=== PATIENT | male | born 1955 | race Caucasian/White ===

== ENCOUNTER → 2020-04-15 06:12 | Outpatient (CLI) | payer MEDICARE, OTHER, SELFPAY ==
--- NOTE | 2020-04-15 | DI.MRI.S_ITS ---
PROCEDURE: MR LUMBAR SPINE WO CON INDICATIONS: Low back pain TECHNIQUE: Noncontrast sagittal T1 spin echo and T2 fast echo, sagittal STIR, axial T1 and T2 fast spin echo through the lumbar spine. In cases with scoliosis, additional coronal T2 fast spin echo may be performed. COMPARISON: None. FINDINGS: Image quality: Excellent. Alignment and Curvature: There is normal bony alignment. Bone Marrow: Marrow is of normal overall signal. No acute vertebral body compression fractures. Spinal Cord: Conus medullaris terminates at the T12 level. Visualized cord demonstrates normal signal and size. Paraspinous Soft Tissues: No paravertebral masses. L1-L2: Moderate disc desiccation and height loss. No canal stenosis. No neural foraminal narrowing. L2-L3: Moderate disc desiccation and height loss. Mild facet ligamentum flavum hypertrophy. No canal stenosis. Mild bilateral neural foraminal stenosis. L3-L4: Moderate disc desiccation and height loss. Severe facet ligamentum flavum hypertrophy. No canal stenosis. Moderate right and mild left neural foraminal narrowing. L4-L5: Small posterior focal high-intensity zone. Mild disc desiccation and height loss. Severe facet ligamentum flavum hypertrophy. No canal stenosis. Mild right and moderate left neural foraminal stenosis. L5-S1: Moderate disc desiccation and height loss. Vacuum disc phenomenon. Mild facet sclerosis. No canal stenosis. Moderate right and severe left neuroforaminal stenosis. There is mild flattening of the exiting left nerve root. IMPRESSION: 1. Mild to moderate disc desiccation and height loss throughout the lumbar spine. 2. Moderate right neural foraminal stenosis at L3-4 and L5-S1. Moderate left foraminal stenosis at L4-5. Severe left foraminal stenosis at L5-S1 with flattening of the exiting nerve root. 3. No canal stenosis of the lumbar spine. 4. 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 Dictated by: Shana Avila M.D. on 04/15/2020 at 11:28 Approved by: Shana Avila M.D. on 04/15/2020 at 11:40
== END ==
PROVIDERS: Referring Provider Physical Medicine & Rehabilitation Pain Medicine; Visit Provider Physical Medicine & Rehabilitation Pain Medicine
DX: M54.5 Low back pain (principal); M48.061 Spinal stenosis, lumbar region without neurogenic claudication; M48.07 Spinal stenosis, lumbosacral region
CPT/HCPCS: 72148

== ENCOUNTER → 2022-03-17 08:58 | Outpatient (CLI) | payer MEDICARE, OTHER, SELFPAY ==
--- NOTE | 2022-03-17 | DI.MRI.S_ITS ---
PROCEDURE: MR LUMBAR SPINE WO CON INDICATIONS: SPINAL STENOSIS/LUMBAR REGION TECHNIQUE: Noncontrast sagittal T1 spin echo and T2 fast echo, sagittal STIR, and T2 fast spin echo through the lumbar spine. In cases with scoliosis, additional coronal T2 fast spin echo may be performed. COMPARISON: [facility], CR, XR LUMBAR SPINE WITH OBLIQUES PLUS FLEXION EXTENSION, 12/20/2021, 13:58. [facility], , MR LUMBAR SPINE WO CON, 04/15/2020, 7:07. FINDINGS: Image quality: Excellent. Alignment and Curvature: Bilateral L5 pars defects. Trace anterolisthesis of L5 on S1. Bone Marrow: Marrow is of normal overall signal. No acute vertebral body compression fractures. Spinal Cord: Conus medullaris terminates at the L1 level. Visualized cord demonstrates normal signal and size. Paraspinous Soft Tissues: No paravertebral masses. T12-L1: Minimal disc bulge. No canal stenosis or foraminal stenosis. L1-L2: Minimal disc bulge. No canal stenosis or foraminal stenosis. L2-L3: Disc bulge. Facet and ligament hypertrophy. No significant canal stenosis. Moderate bilateral foraminal stenosis with mild flattening deformity on the exiting bilateral L2 nerve roots. L3-L4: Diffuse disc bulge, moderate in the central canal and moderately large in the lateral recesses. Bilateral facet hypertrophy. Mild bilateral central canal stenosis, at least moderate bilateral lateral recess stenosis, and moderate bilateral foraminal stenosis. There is flattening deformity on the exiting bilateral L3 nerve roots. L4-L5: Disc bulge. Facet and ligament hypertrophy. No significant central canal stenosis. Moderate bilateral foraminal narrowing with flattening deformity on the exiting bilateral L4 nerve roots. L5-S1: Bilateral L5 pars defects. Minimal anterolisthesis of L5 on S1. Diffuse posterior disc bulge. Bilateral facet hypertrophy. There is a small free disc fragment sitting in the medial aspect of the right foramen, measuring approximately 8 mm in diameter. It likely contributes to right foraminal L5 nerve root impingement. There is bilateral foraminal disc bulge farther laterally, with marked bilateral foraminal narrowing and bilateral foraminal L5 nerve root impingement. IMPRESSION: 1. There is underlying diffuse degenerative change with multilevel facet arthropathy. 2. Findings are most significant at L5-S1. There are bilateral L5 pars defects, and minimal anterolisthesis of L5 on S1. There is marked bilateral foraminal narrowing with bilateral foraminal L5 nerve root impingement. There is also a small free disc fragment in the right foramen medial to the area of marked foraminal narrowing. 3. There is mild canal stenosis at L3-L4. 4. Multilevel foraminal narrowing at other levels as described above Dictated by: Francisco Victor M.D. on 03/17/2022 at 12:15 Approved by: Francisco Victor M.D. on 03/17/2022 at 12:27
== END ==
PROVIDERS: Referring Provider Physical Medicine & Rehabilitation Pain Medicine; Visit Provider Physical Medicine & Rehabilitation Pain Medicine
DX: M48.062 Spinal stenosis, lumbar region with neurogenic claudication (principal); M47.816 Spondylosis without myelopathy or radiculopathy, lumbar region; M43.17 Spondylolisthesis, lumbosacral region
CPT/HCPCS: 72148

== ENCOUNTER 2022-03-30 09:30 | Emergency (ER) | payer MEDICARE, OTHER, SELFPAY ==
[2022-03-30 10:01] VITALS: BP 176/83; PULSE 75; RESP 16; TEMP 36.1; O2SAT 97; BMI 37.3
[2022-03-30 10:57] VITALS: BP 171/92; PULSE 78; O2SAT 96
--- NOTE | 2022-03-30 11:20 | ED.EXTPRO ---
HPI - Extremity Problem General Chief complaint: Extremity Problem,Nontraumatic Stated complaint: hematoma behind left knee, pain a week ago Time Seen by Provider: 03/30/22 11:18 History of Present Illness HPI Narrative: Patient Is 66-year-old male history of hypertension hyperlipidemia prediabetes presenting today with all left leg contusion. He said last week they were driving in the car he felt a little twinge behind his knee he thought nothing of it. Couple days ago he bumped his patella this morning he woke up and his noticed that he had a significant bruising behind his knee. He denies any injury. He is able to walk and ambulate. He is not on any anticoagulation. They are supposed to fly in an airplane and he is worried that might be a possible clot. Review of Systems Review of Systems Narrative: GENERAL: Denies chills,fever HEENT: Denies throat pain RESPIRATORY: Denies dyspnea, cough, wheezing CARDIOVASCULAR: Denies chest pain, palpitations GASTROINTESTINAL: Denies nausea, vomiting MUSCULOSKELETAL: Denies extremity pain, injury SKIN: Contusion NEUROLOGIC: Denies weakness, dizziness, headache, numbness 8 point review of systems is negative except for those stated above and HPI Exam Initial Vital Signs Initial Vital Signs: Vital Signs Temperature 97.0 F L 03/30/22 10:01 Pulse Rate 75 03/30/22 10:01 Respiratory Rate 16 03/30/22 10:01 Blood Pressure 176/83 H 03/30/22 10:01 Pulse Oximetry 97 03/30/22 10:01 Oxygen Delivery Method 03/30/22 10:01 GENERAL: Alert very pleasant 66-year-old male no acute distress CARDIOVASCULAR: peripheral pulses in tact, cap refill <2 sec RESPIRATORY: No respiratory distress, speaks in full sentences without difficulty EXTREMITIES: Normal range of motion, no clubbing or edema. Neurovascularly intact Left leg no calf swelling or pain. Knee is stable no swelling. Able to flex and extend knee without any difficulty ambulating without any difficulty NEUROLOGICAL: Cranial nerves II through XII grossly intact. Normal gait and speech. SKIN: Contusion left posterior knee more and hamstring area not circumferential isolated minimally tender Course Vital Signs Vital signs: Vital Signs - 8 hr 03/30/22 10:57 03/30/22 11:41 Pulse Rate 78 Respiratory Rate 16 Blood Pressure 171/92 H 142/78 H Pulse Oximetry 96 97 Oxygen Delivery Method Room Air Room Air MDM - Extremity (Nontraumatic) MDM Narrative Medical decision making narrative: At this time patient has of posterior knee contusion. Possibly a ruptured Arauz's cyst. He is completely asymptomatic no sign of injury no decreased range of motion. Discharge Plan Departure Patient Disposition: Home Clinical Impression: Contusion Instructions: Contusion Activity Restrictions/Additional Instructions: *You have been diagnosed with contusion *What to do: At this time bruising should improve. Elevate and ice *Continue to take medications as directed Tylenol or ibuprofen *Follow up with your primary care provider in 2-3 days or call [phone] *Return to ER if you should have increasing leg pain swelling difficulty walking or any new, worsening or concerning symptoms Visit Report Forms: Patient Portal/API
[2022-03-30 11:41] VITALS: BP 142/78; RESP 16; O2SAT 97
== END 2022-03-30 11:41 | disposition home or self-care (01) ==
PROVIDERS: Emergency Provider Emergency Medicine
DX: S80.12XA Contusion of left lower leg, initial encounter (principal)
CPT/HCPCS: 99281